=== PATIENT | female | born 1970 | race Caucasian/White ===

== ENCOUNTER 2016-08-15 20:56 | Emergency (ER) | payer BC ==
[~2016-08-15] VITALS: Ht 172.7 cm; Wt 70.9 kg
[~2016-08-15 20:56] MED LIST: AMBIEN10 MG PO; ORAXYL20 MG PO; TRAZODONE50 MG PO; VICODIN 5/5001 UDTAB PO
[2016-08-15 21:10] VITALS: TEMP 98.4
[2016-08-15] MEDS ORDERED: RESTORIL 1515 MG/CAP PO (21:15)
[2016-08-15] MEDS ORDERED: RESTORIL 77.5 MG/CAP PEG (22:18)
[2016-08-15 22:57] LABS: BASO # 0.1 (0.0-0.2); BASO % 0.6 % (0.0-2.0); EOS # 0.5 (0.0-0.7); EOS % 3.8 % (0-4.0); GRAN # 7.8 (1.4-6.5); GRAN % 59.5 % (42.2-75.2); HEMATOCRIT 42.7 % (37.0-47.0); HEMOGLOBIN 14.3 g/dl (12.5-16.0); LYMPH # 3.8 (1.2-3.4); LYMPH % 28.8 % (20.0-51.0); MEAN CELL VOLUME 91 fl (80.0-100.0); MEAN CORPUSCULAR HEMOGLOBIN 30 pg (27.0-31.0); MEAN CORPUSCULAR HGB CONC 34 g/dl (33.0-37.0); MEAN PLATELET VOLUME 11.9 fl (7.4-10.4); MONO # 0.9 (0.1-0.6); MONO % 6.8 % (1.7-9.3); PLATELET COUNT 301 K/mm3 (130-400); RED BLOOD COUNT 4.71 M/mm3 (4.10-5.30); REDCELL DISTRIBUTION WIDTH-CV 13.5 % (11.5-14.5)
[2016-08-15 23:00] LABS: PH 6 (5-8); SQUAMOUS EPITHELIAL None Seen /hpf; URINE APPEARANCE Clear; URINE BACTERIA None Seen /hpf; URINE BILIRUBIN Negative (NEGATIVE); URINE BLOOD 1+ (NEGATIVE); URINE COLOR Straw; URINE GLUCOSE Negative (NEGATIVE); URINE KETONE Negative (NEGATIVE); URINE RBC 0-2 /hpf; URINE UROBILINOGEN Negative (NEGATIVE); URINE WBC None Seen /hpf
[2016-08-15 23:13] LABS: ADJUSTED CALCIUM 9.4 mg/dL (8.4-10.2); ALBUMIN 4.3 gm/dL (3.5-5.0); BILIRUBIN,TOTAL 0.5 mg/dL (0.0-1.0); C-REACTIVE PROTEIN 0.6 mg/dL (0.0-0.9); CALCIUM 9.6 mg/dL (8.4-10.2); CREATININE, serum 0.72 mg/dL (0.52-1.25); POTASSIUM 3.6 mmol/L (3.4-5.0); TOTAL PROTEIN 7.4 gm/dL (6.4-8.2)
[2016-08-16 02:02] VITALS: BP 115/77; PULSE 68
== END 2016-08-16 01:45 | disposition home or self-care (01) ==
LOC: COL.ER 20:56
PROVIDERS: Nurse Practitioner
DX: R10.33 Periumbilical pain (principal); R11.0 Nausea; Z87.442 Personal history of urinary calculi; F41.9 Anxiety disorder, unspecified; F43.10 Post-traumatic stress disorder, unspecified; F31.9 Bipolar disorder, unspecified; F17.210 Nicotine dependence, cigarettes, uncomplicated
CPT/HCPCS: Q9967

== ENCOUNTER 2016-10-05 07:16 | Outpatient (CLI) | payer BC ==
[~2016-10-05] VITALS: Ht 172.7 cm; Wt 67.3 kg
[~2016-10-05 07:16] MED LIST changes: +RESTORIL 1515 MG/CAP PO; +RESTORIL 77.5 MG/CAP PEG
[2016-10-05 08:00] VITALS: BP 124/64; PULSE 95; TEMP 98.7
[2016-10-05] MEDS ORDERED: ZITHROMAX 250M250 MG PO (08:39)
[2016-10-05] MEDS ORDERED: RESTORIL30 MG PO (08:41)
[2016-10-05] MEDS ORDERED: LINZESS290CAP PO (08:42)
[2016-10-05 09:29] VITALS: BP 101/48; PULSE 89; TEMP 98.7
[2016-10-05 23:19] LABS: CORTISOL 3O MINUTES 24 ug/dL (14-25)
[2016-10-13 01:09] LABS: CORTISOL BASELINE <1 ug/dL (3-20)
== END 2016-10-05 10:47 | disposition home or self-care (01) ==
LOC: EUO 07:16
PROVIDERS: Family Medicine
DX: R55 Syncope and collapse (principal); I95.1 Orthostatic hypotension; R53.83 Other fatigue; E55.9 Vitamin D deficiency, unspecified
CPT/HCPCS: J0834

== ENCOUNTER 2016-10-07 19:43 | Emergency (ER) | payer BC ==
[~2016-10-07] VITALS: Ht 172.7 cm; Wt 67.3 kg
[~2016-10-07 19:43] MED LIST changes: +LINZESS290CAP PO; +RESTORIL30 MG PO; +ZITHROMAX 250M250 MG PO
[2016-10-07 19:44] VITALS: TEMP 98.1
[2016-10-07 20:24] LABS: BASO # 0.1 (0.0-0.2); BASO % 0.9 % (0.0-2.0); EOS # 0.4 (0.0-0.7); EOS % 3.7 % (0-4.0); GRAN # 6.5 (1.4-6.5); GRAN % 55.8 % (42.2-75.2); HEMATOCRIT 42.1 % (37.0-47.0); HEMOGLOBIN 14.5 g/dl (12.5-16.0); LYMPH # 3.8 (1.2-3.4); LYMPH % 32.4 % (20.0-51.0); MEAN CELL VOLUME 88 fl (80.0-100.0); MEAN CORPUSCULAR HEMOGLOBIN 30 pg (27.0-31.0); MEAN CORPUSCULAR HGB CONC 34 g/dl (33.0-37.0); MEAN PLATELET VOLUME 11.8 fl (7.4-10.4); MONO # 0.8 (0.1-0.6); MONO % 6.9 % (1.7-9.3); PLATELET COUNT 295 K/mm3 (130-400); RED BLOOD COUNT 4.77 M/mm3 (4.10-5.30); REDCELL DISTRIBUTION WIDTH-CV 13.8 % (11.5-14.5); WHITE BLOOD COUNT 11.7 K/mm3 (4.8-10.8)
[2016-10-07 20:27] LABS: PH 7 (5-8); SQUAMOUS EPITHELIAL 0-2 /hpf; URINE APPEARANCE Clear; URINE BACTERIA None Seen /hpf; URINE BILIRUBIN Negative (NEGATIVE); URINE BLOOD Negative (NEGATIVE); URINE COLOR Colorless; URINE GLUCOSE Negative (NEGATIVE); URINE KETONE Negative (NEGATIVE); URINE RBC 0-2 /hpf; URINE UROBILINOGEN Negative (NEGATIVE); URINE WBC 0-2 /hpf
[2016-10-07 20:33] LABS: CALCIUM 9.3 mg/dL (8.4-10.2); CREATININE, serum 0.6 mg/dL (0.52-1.25); POTASSIUM 3.5 mmol/L (3.4-5.0)
[2016-10-07 21:34] VITALS: BP 118/70; PULSE 77
== END 2016-10-07 21:35 | disposition home or self-care (01) ==
LOC: COL.ER 19:43
PROVIDERS: Emergency Medicine
DX: R51 Headache (principal); R42 Dizziness and giddiness; R00.2 Palpitations; F17.210 Nicotine dependence, cigarettes, uncomplicated

== ENCOUNTER → 2017-04-20 | Outpatient (CLI) | payer BC | LOC: COL.RAD 09:27 | DX: D25.9 Leiomyoma of uterus, unspecified (principal); N83.202 Unspecified ovarian cyst, left side ==

== ENCOUNTER → 2017-11-08 | Outpatient (CLI) | payer BC | LOC: MC.RAD 11:33 | DX: Z12.31 Encounter for screening mammogram for malignant neoplasm of breast (principal) ==

== ENCOUNTER 2018-02-28 12:59 | Outpatient (RCR) | payer BC | END 2018-05-29 | disposition home or self-care (01) | LOC: WSST | DX: R41.842 Visuospatial deficit (principal); F09 Unspecified mental disorder due to known physiological condition ==

== ENCOUNTER → 2018-03-31 | Outpatient (CLI) | payer BC | LOC: COL.RAD 03-28 08:30 | DX: R91.8 Other nonspecific abnormal finding of lung field (principal) | CPT/HCPCS: Q9967 ==

== ENCOUNTER → 2018-10-02 | Outpatient (CLI) | payer BC ==
[2018-10-02 17:05] LABS: BASO # 0.1 (0.0-0.2); BASO % 0.7 % (0.0-2.0); EOS # 0.2 (0.0-0.7); EOS % 2.5 % (0-4.0); GRAN # 5.3 (1.4-6.5); GRAN % 56.2 % (42.2-75.2); HEMATOCRIT 45.2 % (37.0-47.0); LYMPH # 3.2 (1.2-3.4); LYMPH % 34.1 % (20.0-51.0); MEAN CELL VOLUME 93 fl (80.0-100.0); MEAN CORPUSCULAR HEMOGLOBIN 31 pg (27.0-31.0); MEAN CORPUSCULAR HGB CONC 33 g/dl (33.0-37.0); MEAN PLATELET VOLUME 11.4 fl (7.4-10.4); MONO # 0.6 (0.1-0.6); MONO % 6.3 % (1.7-9.3); PLATELET COUNT 313 K/mm3 (130-400); RED BLOOD COUNT 4.88 M/mm3 (4.10-5.30); REDCELL DISTRIBUTION WIDTH-CV 13.6 % (11.5-14.5)
[2018-10-02 17:22] LABS: ALBUMIN 4.4 gm/dL (3.5-5.0); BILIRUBIN,TOTAL 0.4 mg/dL (0.0-1.0); CALCIUM 10.1 mg/dL (8.4-10.2); CREATININE, serum 0.68 (0.52-1.25); POTASSIUM 4.5 mmol/L (3.4-5.0); TOTAL PROTEIN 7.7 gm/dL (6.4-8.2)
[2018-10-03 16:17] LABS: ESTRADIOL <10 pg/mL (()); FOLLICLE STIMULATING HORMONE 72.1 mIU/mL (())
== END ==
LOC: COL.LAB 16:17
PROVIDERS: Family Medicine
DX: M62.838 Other muscle spasm (principal); R53.83 Other fatigue; R79.0 Abnormal level of blood mineral; R74.8 Abnormal levels of other serum enzymes; Z78.0 Asymptomatic menopausal state

== ENCOUNTER 2018-11-29 11:21 | Emergency (ER) | payer BC ==
[~2018-11-29] VITALS: Ht 170.2 cm; Wt 79.5 kg
[2018-11-29 11:24] VITALS: PULSE 88; TEMP 97.9
[2018-11-29 11:40] LABS: COLLECTION METHOD CLEAN CATCH
[2018-11-29 11:51] LABS: PH 7 (5-8); SQUAMOUS EPITHELIAL 0-2 /hpf; URINE APPEARANCE Clear; URINE BACTERIA None Seen /hpf; URINE BILIRUBIN Negative (NEGATIVE); URINE BLOOD 1+ (NEGATIVE); URINE COLOR Straw; URINE GLUCOSE Negative (NEGATIVE); URINE KETONE Negative (NEGATIVE); URINE LEUKOCYTE ESTERASE Negative (NEGATIVE); URINE NITRATE Negative (NEGATIVE); URINE PROTEIN(semi-quant) Negative (NEGATIVE); URINE RBC 0-2 /hpf; URINE UROBILINOGEN Negative (NEGATIVE)
[2018-11-29] MEDS ORDERED: WELLBUTRIN XL150 MG PO (11:58)
[2018-11-29] MEDS ORDERED: SINGULAIR 110 MG/TAB PO (11:58)
[2018-11-29] MEDS ORDERED: LINZESS290CAP (11:59)
[2018-11-29] MEDS ORDERED: ZYRTEC 10MG10 MG PO (11:59)
[2018-11-29] MEDS ORDERED: RESTORIL30 MG (12:00)
[2018-11-29] MEDS ORDERED: FLEXERIL 1010 MG/TAB PO (12:00)
[2018-11-29] MEDS ORDERED: ZANTAC 150MG T150 MG PO (12:01)
[2018-11-29] MEDS ORDERED: ALBUTEROL AER HFA (12:02)
[2018-11-29 12:03] VITALS: BP 124/91
[2018-11-29] MEDS ORDERED: ZOFRAN ODT4 MG PO (12:06)
== END 2018-11-29 12:16 | disposition home or self-care (01) ==
LOC: COL.ER 11:21
PROVIDERS: Physician Assistant
DX: S06.0X0A Concussion without loss of consciousness, initial encounter (principal); Z90.710 Acquired absence of both cervix and uterus; Z88.5 Allergy status to narcotic agent; V00.181A Fall from other rolling-type pedestrian conveyance, initial encounter; W22.8XXA Striking against or struck by other objects, initial encounter

== ENCOUNTER → 2019-03-09 | Outpatient (CLI) | payer BC ==
[~2019-03-09] MED LIST changes: +ALBUTEROL AER HFA; +FLEXERIL 1010 MG/TAB PO; +LINZESS290CAP; +RESTORIL30 MG; +SINGULAIR 110 MG/TAB PO; +WELLBUTRIN XL150 MG PO; +ZANTAC 150MG T150 MG PO; +ZOFRAN ODT4 MG PO; +ZYRTEC 10MG10 MG PO
== END ==
LOC: COL.RAD 12:03
DX: G47.52 REM sleep behavior disorder (principal); H53.9 Unspecified visual disturbance; I73.00 Raynaud's syndrome without gangrene; R41.89 Other symptoms and signs involving cognitive functions and awareness; J34.89 Other specified disorders of nose and nasal sinuses

== ENCOUNTER → 2019-04-13 | Outpatient (CLI) | payer BC | LOC: COL.RAD 14:00 | DX: J43.9 Emphysema, unspecified (principal); R91.8 Other nonspecific abnormal finding of lung field | CPT/HCPCS: Q9967 ==

== ENCOUNTER → 2020-03-28 | Outpatient (CLI) | payer BC | LOC: COL.RAD 13:32 | DX: D18.03 Hemangioma of intra-abdominal structures (principal); K80.20 Calculus of gallbladder without cholecystitis without obstruction; R91.8 Other nonspecific abnormal finding of lung field | CPT/HCPCS: Q9967 ==

== ENCOUNTER → 2020-06-04 | Outpatient (CLI) | payer BC | LOC: MC.RAD 12:55 | DX: Z12.31 Encounter for screening mammogram for malignant neoplasm of breast (principal); N63.10 Unspecified lump in the right breast, unspecified quadrant ==

== ENCOUNTER → 2020-06-09 | Outpatient (CLI) | payer BC | LOC: MC.RAD 12:51 | DX: N60.01 Solitary cyst of right breast (principal) ==

== ENCOUNTER → 2020-06-13 | Outpatient (CLI) | payer BC ==
[2020-06-13 12:09] LABS: C-REACTIVE PROTEIN < 0.5 mg/dL (0.0-0.9)
[2020-06-13 12:35] LABS: ALBUMIN 4.5 gm/dL (3.5-5.0); BILIRUBIN,TOTAL 0.5 mg/dL (0.0-1.0); CALCIUM 10.1 mg/dL (8.4-10.2); CHOLESTEROL RISK RATIO 3.7; CREATININE, serum 0.72 (0.52-1.25); TOTAL PROTEIN 7.8 gm/dL (6.4-8.2)
[2020-06-13 13:05] LABS: BASO # 0.1 (0.0-0.2); BASO % 1.1 % (0.0-2.0); EOS # 0.2 (0.0-0.7); EOS % 2.4 % (0-4.0); GRAN # 4.7 (1.4-6.5); GRAN % 61.8 % (42.2-75.2); HEMATOCRIT 45.5 % (37.0-47.0); HEMOGLOBIN 14.7 g/dl (12.5-16.0); LYMPH # 2.2 (1.2-3.4); LYMPH % 28.6 % (20.0-51.0); MEAN CELL VOLUME 92 fl (80.0-100.0); MEAN CORPUSCULAR HEMOGLOBIN 30 pg (27.0-31.0); MEAN CORPUSCULAR HGB CONC 32 g/dl (33.0-37.0); MEAN PLATELET VOLUME 12.6 fl (7.4-10.4); MONO # 0.4 (0.1-0.6); MONO % 5.8 % (1.7-9.3); PLATELET COUNT 319 K/mm3 (130-400); RED BLOOD COUNT 4.95 M/mm3 (4.10-5.30); REDCELL DISTRIBUTION WIDTH-CV 13.4 % (11.5-14.5)
[2020-06-13 22:38] LABS: FOLATE (FOLIC ACID) 12.8 ng/mL (7.0-31.4)
[2020-06-14 04:12] LABS: CERULOPLASMIN 37 mg/dL (20-60)
== END ==
LOC: COL.LAB 10:43
PROVIDERS: Nurse Practitioner
DX: H93.11 Tinnitus, right ear (principal); R41.89 Other symptoms and signs involving cognitive functions and awareness; M79.602 Pain in left arm; R20.0 Anesthesia of skin

== ENCOUNTER → 2020-06-30 | Outpatient (CLI) | payer BC | LOC: COL.CARD | DX: R42 Dizziness and giddiness (principal); R20.0 Anesthesia of skin; H93.11 Tinnitus, right ear; R41.89 Other symptoms and signs involving cognitive functions and awareness ==

== ENCOUNTER → 2020-08-27 | Outpatient (CLI) | payer BC | LOC: MHCPAIN 10:59 | DX: M47.816 Spondylosis without myelopathy or radiculopathy, lumbar region (principal); M54.5 Low back pain; M79.2 Neuralgia and neuritis, unspecified; G89.29 Other chronic pain | CPT/HCPCS: G0463 ==

== ENCOUNTER → 2020-12-09 | Outpatient (RCR) | payer BC | END | disposition home or self-care (01) | LOC: WSC → WSPT 09-26 13:00 → WSC 11-04 15:45 → WSPT 11-07 15:00 → WSC 11-21 15:00 → WSPT 11-28 15:00 → WSC 12-05 15:00 | DX: M54.9 Dorsalgia, unspecified (principal) ==

== ENCOUNTER → 2021-03-03 | Outpatient (CLI) | payer BC | LOC: COL.RAD 11:56 | DX: R13.10 Dysphagia, unspecified (principal); R41.89 Other symptoms and signs involving cognitive functions and awareness ==

== ENCOUNTER 2021-03-10 15:45 | Outpatient (RCR) | payer BC | END 2021-03-16 | disposition home or self-care (01) | LOC: WSPT | DX: G89.29 Other chronic pain (principal); G20 Parkinson's disease; M54.9 Dorsalgia, unspecified ==

== ENCOUNTER 2021-04-07 14:00 | Outpatient (RCR) | payer BC | END 2021-04-24 | disposition home or self-care (01) | LOC: WSST | DX: R13.10 Dysphagia, unspecified (principal); G31.84 Mild cognitive impairment of uncertain or unknown etiology; R47.9 Unspecified speech disturbances; R53.83 Other fatigue ==

== ENCOUNTER 2021-04-10 15:00 | Outpatient (RCR) | payer BC | END 2021-04-24 | disposition home or self-care (01) | LOC: WSPT | DX: G20 Parkinson's disease (principal); M54.9 Dorsalgia, unspecified; G89.29 Other chronic pain ==

== ENCOUNTER 2021-05-19 13:30 | Outpatient (RCR) | payer BC | END 2021-05-25 | disposition home or self-care (01) | LOC: WSST | DX: R13.10 Dysphagia, unspecified (principal); G31.84 Mild cognitive impairment of uncertain or unknown etiology; R48.9 Unspecified symbolic dysfunctions ==

== ENCOUNTER 2021-05-26 13:24 | Outpatient (RCR) | payer BC | END 2021-06-22 | disposition home or self-care (01) | LOC: WSST | DX: G31.84 Mild cognitive impairment of uncertain or unknown etiology (principal); R13.10 Dysphagia, unspecified ==

== ENCOUNTER 2021-06-05 15:00 | Outpatient (RCR) | payer BC | END 2021-06-22 | disposition home or self-care (01) | LOC: WSPT | DX: G31.84 Mild cognitive impairment of uncertain or unknown etiology (principal); R47.9 Unspecified speech disturbances; R13.10 Dysphagia, unspecified ==

== ENCOUNTER 2021-07-10 15:00 | Outpatient (RCR) | payer BC | END 2021-07-23 | disposition home or self-care (01) | LOC: WSPT | DX: G31.84 Mild cognitive impairment of uncertain or unknown etiology (principal); F80.9 Developmental disorder of speech and language, unspecified; R13.10 Dysphagia, unspecified ==

== ENCOUNTER 2021-08-14 15:00 | Outpatient (RCR) | payer BC | END 2021-08-22 | disposition home or self-care (01) | LOC: WSPT | DX: R13.10 Dysphagia, unspecified (principal); R48.9 Unspecified symbolic dysfunctions ==

== ENCOUNTER → 2021-09-01 | Outpatient (CLI) | payer BC | LOC: MC.RAD 16:17 | DX: Z12.31 Encounter for screening mammogram for malignant neoplasm of breast (principal) ==

== ENCOUNTER 2021-09-11 15:00 | Outpatient (RCR) | payer BC | END 2021-09-22 | disposition home or self-care (01) | LOC: WSPT | DX: G31.84 Mild cognitive impairment of uncertain or unknown etiology (principal); M54.9 Dorsalgia, unspecified; G89.29 Other chronic pain; R47.89 Other speech disturbances; R13.10 Dysphagia, unspecified ==

== ENCOUNTER → 2021-10-22 | Outpatient (RCR) | payer BC | END | disposition still patient (30) | LOC: WSPT | DX: R13.10 Dysphagia, unspecified (principal); G31.84 Mild cognitive impairment of uncertain or unknown etiology; R47.9 Unspecified speech disturbances ==

== ENCOUNTER 2021-11-20 15:00 | Outpatient (RCR) | payer BC, OTHER | END 2021-11-22 | disposition home or self-care (01) | LOC: WSPT | DX: R13.10 Dysphagia, unspecified (principal); R48.9 Unspecified symbolic dysfunctions ==

== ENCOUNTER 2021-12-18 15:00 | Outpatient (RCR) | payer BC, OTHER | END 2021-12-23 | disposition home or self-care (01) | LOC: WSPT | DX: G31.84 Mild cognitive impairment of uncertain or unknown etiology (principal); M54.9 Dorsalgia, unspecified; G89.29 Other chronic pain; R13.10 Dysphagia, unspecified; R47.9 Unspecified speech disturbances ==

== ENCOUNTER 2022-02-10 15:00 | Outpatient (RCR) | payer BC, OTHER | END 2022-02-22 | disposition home or self-care (01) | LOC: WSPT | DX: G31.84 Mild cognitive impairment of uncertain or unknown etiology (principal); R13.10 Dysphagia, unspecified; G89.29 Other chronic pain; M54.9 Dorsalgia, unspecified; R47.9 Unspecified speech disturbances ==

== ENCOUNTER 2022-05-21 15:00 | Outpatient (RCR) | payer BC | END 2022-05-25 | disposition home or self-care (01) | LOC: WSPT | DX: G31.84 Mild cognitive impairment of uncertain or unknown etiology (principal); M54.9 Dorsalgia, unspecified; M25.512 Pain in left shoulder; R47.9 Unspecified speech disturbances; R13.10 Dysphagia, unspecified ==

== ENCOUNTER → 2022-07-23 | Outpatient (RCR) | payer BC | END | disposition home or self-care (01) | LOC: WSPT | DX: M54.50 Low back pain, unspecified (principal); G89.29 Other chronic pain; M25.512 Pain in left shoulder ==

== ENCOUNTER 2022-12-03 15:00 | Outpatient (RCR) | payer BC | END 2022-12-23 | disposition home or self-care (01) | LOC: WSPT | DX: M54.59 Other low back pain (principal); G89.29 Other chronic pain; M25.512 Pain in left shoulder; G31.84 Mild cognitive impairment of uncertain or unknown etiology; R47.9 Unspecified speech disturbances; R13.10 Dysphagia, unspecified ==

== ENCOUNTER 2023-01-21 15:00 | Outpatient (RCR) | payer BC | END 2023-01-22 | disposition home or self-care (01) | LOC: WSPT | DX: M54.50 Low back pain, unspecified (principal); G89.29 Other chronic pain; R13.10 Dysphagia, unspecified ==

== ENCOUNTER 2023-04-15 15:00 | Outpatient (RCR) | payer BC | END 2023-04-24 | disposition home or self-care (01) | LOC: WSPT | DX: M54.50 Low back pain, unspecified (principal); G89.29 Other chronic pain ==

== ENCOUNTER 2023-05-20 15:00 | Outpatient (RCR) | payer BC | END 2023-05-25 | disposition home or self-care (01) | LOC: WSPT | DX: M54.50 Low back pain, unspecified (principal); M25.512 Pain in left shoulder; G89.29 Other chronic pain; R13.10 Dysphagia, unspecified ==

== ENCOUNTER 2023-06-17 15:00 | Outpatient (RCR) | payer BC | END 2023-06-23 | disposition home or self-care (01) | LOC: WSPT | DX: M54.50 Low back pain, unspecified (principal); M25.512 Pain in left shoulder; G89.29 Other chronic pain; R13.10 Dysphagia, unspecified; R47.9 Unspecified speech disturbances ==

== ENCOUNTER 2023-08-19 15:00 | Outpatient (RCR) | payer BC | END 2023-08-23 | disposition home or self-care (01) | LOC: WSPT | DX: M54.50 Low back pain, unspecified (principal); M25.512 Pain in left shoulder; G20.A1 Parkinson's disease without dyskinesia, without mention of fluctuations ==

== ENCOUNTER → 2023-12-07 | Outpatient (CLI) | payer BC | LOC: MC.RAD 13:20 | DX: Z01.419 Encounter for gynecological examination (general) (routine) without abnormal findings (principal); Z12.31 Encounter for screening mammogram for malignant neoplasm of breast ==